=== PATIENT | female | born 2005 | race Caucasian/White ===

== ENCOUNTER 2024-03-06 06:32 | Emergency (ER) | payer OTHER, BC, SELFPAY ==
[2024-03-06 06:48] VITALS: BP 124/78; PULSE 70; RESP 19; TEMP 36.4; O2SAT 99; BMI 30.9
--- NOTE | 2024-03-06 07:07 | ED_ITS ---
HPI - Abdominal Pain 2 General: Chief Complaint: Abdominal Pain Stated Complaint: abd pain Time Seen by Provider: 03/06/24 06:39 History of Present Illness: 19-year-old female presents emergency ro om with complaint of abdominal pain that began this morning. Complains of pain on the right side radiating to the groin. She vomited multiple times initially she felt like she could not urinate and now is able to urinate. 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 She was able to urinate and did have some relief of this. She has no history of renal stones she denies any hematuria she does not believe she is . No previous abdominal surgeries. Associated Symptoms: Denies chills, dysuria and fever(s) Related Data Date of Last Menstrual Period: 02/25/24 Home Medications Medication Instructions Recorded Confirmed medroxyprogesterone 150 mg/mL 1 mg IM .[id number] 03/06/24 03/06/24 intramuscular suspension Previous Rx's Medication Instructions Recorded ciprofloxacin HCl 500 mg tablet 500 mg PO BID #14 tabs 03/06/24 (Cipro) Allergies Allergy/AdvReac Type Severity Reaction Status Date / Time No Known Allergies Allergy Verified 03/06/24 06:47 Review of Systems 2 Const: Denies: fever(s) or chills Card: Denies: chest pain Resp: Denies: dyspnea GI: Denies: abdominal pain : Denies: dysuria, urinary frequency or urinary urgency Musc: Denies: neck pain or back pain Skin/Breast: Denies: rash [facility] ED 2 Female Reproductive History: Date of last menstrual period: 02/25/24 Physical Exam 2 Const: COMMON NORMALS: no acute distress GENERAL APPEARANCE: cooperative and comfortable ORIENTATION/CONSCIOUSNESS: Yes awake, Yes oriented to person, Yes oriented to place and Yes oriented to time HENMT: COMMON NORMALS: normocephalic, atraumatic and hearing grossly normal bilaterally HEAD & SCALP: normocephalic and atraumatic Resp: COMMON NORMALS: normal respiratory effort, No retractions, No use of accessory muscles and clear to auscultation bilaterally AUSCULTATION: clear to auscultation bilaterally Cardio: COMMON NORMALS: regular rate, regular rhythm and No murmurs present (Cardio) RATE: regular rate RHYTHM: regular rhythm GI: COMMON NORMALS: No hepatosplenomegaly present AUSCULTATION: Yes normoactive bowel sounds PALPATION: Yes Tenderness to palpation present (GI) Details: RUQ, No Guarding due to palpation present (GI) and Yes No hepatosplenomegaly present : BLADDER/KIDNEY EXAM: Yes CVA tenderness Back/Pelvis: GENERAL BACK: Yes CVA tenderness CVA tenderness: bilateral (Right greater than left) Extremity: COMMON NORMALS: normal to inspection, capillary refill normal, no clubbing, cyanosis or edema, no calf tenderness and no pedal edema Neuro: SENSORIUM/ORIENTATION: Yes oriented to person, Yes oriented to place and Yes oriented to time Skin: COMMON NORMALS: no rashes or lesions noted GENERAL SKIN EXAM: no rashes or lesions noted Course 2 Vital Signs: Vital signs: Vital Signs Temperature 97.6 F 03/06/24 06:48 Pulse Rate 70 03/06/24 09:09 Respiratory Rate 18 03/06/24 09:09 Blood Pressure 102/58 03/06/24 09:09 Pulse Oximetry 98 03/06/24 09:09 Oxygen Delivery Me thod Room Air 03/06/24 06:48 MDM - Abdominal Pain Medical Decision Making Mild pyelonephritis. Patient does have significant on hematuria some of this may be from vaginal contaminant she just recently finished her period. There is no evidence of nephrolithiasis or hydronephrosis or hydroureter on the CT nothing to suggest reasonable has a stone. She does have signs of infection no leukocytosis we will start her on tamsulosin and Cipro was given dose ceftriaxone here discharge home if she has worsening or change symptoms return Medical Records I reviewed the patient's medical records. Lab Data I reviewed the patient's lab results. 03/06/24 07:30 03/06/24 07:30 Labs/Radiology: Radiology Impressions Abdomen/Pelvis CT 03/06/24 07:13 IMPRESSION: 1. Mild fatty infiltration of the liver. Laboratory Results WBC 5.49 10^3/uL (3.29-11.43) 03/06/24 07:30 RBC 4.50 10^6/uL (3.85-5.65) 03/06/24 07:30 Hgb 14.70 g/dL (11.27-16.99) 03/06/24 07:30 Hct 43.9 % (36-47) 03/06/24 07:30 MCV 97.6 fl (85-98) 03/06/24 07:30 MCH 32.7 pg (27-33) 03/06/24 07:30 MCHC 33.5 g/dL (30-55) 03/06/24 07:30 RDW 11.8 % (12.1-15.1) L 03/06/24 07:30 Plt Count 211 10^3/cmm (157-399) 03/06/24 07:30 MPV 10.5 fL (7.4-10.4) H 03/06/24 07:30 Neut % (Auto) 68.8 % 03/06/24 07:30 Lymph % (Auto) 19.1 % 03/06/24 07:30 [place] % (Auto) 8.7 % 03/06/24 07:30 Eos % (Auto) 2.7 % 03/06/24 07:30 Baso % (Auto) 0.5 % 03/06/24 07:30 Neut # (Auto) 3.77 10^3/uL (1.8-7.7) 03/06/24 07:30 Lymph # (Auto) 1.1 10^3/uL (0.8-4.8) 03/06/24 07:30 [place] # (Auto) 0.5 10^3/uL (0.2-0.9) 03/06/24 07:30 Eos # (Auto) 0.2 10^3/uL (0.0-0.8) 03/06/24 07:30 Baso # (Auto) 0.0 10^3/uL (0.0-0.1) 03/06/24 07:30 Nucleated RBC % (auto) 0 % 03/06/24 07:30 Nucleated RBCs # 0.0 /100WBC 03/06/24 07:30 Sodium 136 mmol/L (136-145) 03/06/24 07:30 Potassium 3.9 mmol/L (3.5-5.1) 03/06/24 07:30 Chloride 101 mmol/L (98-107) 03/06/24 07:30 Carbon Dioxide 25 mmol/L (22-29) 03/06/24 07:30 Anion Gap 13.9 (5-19) 03/06/24 07:30 BUN 11 mg/dL (6-20) 03/06/24 07:30 Creatinine 1.0 mg/dL (0.5-0.9) H 03/06/24 07:30 GFR Calculation 70.0 mL/min (90-130) L 03/06/24 07:30 Glucose 104 mg/dL (65-115) 03/06/24 07:30 Calculated Osmolality 282 mOsm/kg (285-295) L 03/06/24 07:30 Calcium 9.2 mg/dL (8.5-10.5) 03/06/24 07:30 Total Bilirubin 0.5 mg/dL (0.15-1.2) 03/06/24 07:30 AST 15 U/L (0-32) 03/06/24 07:30 ALT 15 U/L (0-33) 03/06/24 07:30 Alkaline Phosphatase 89 U/L (35-105) 03/06/24 07:30 Total Protein 7.4 g/dL (6.6-8.7) 03/06/24 07:30 Albumin 4.6 g/dL (3.5-5.2) 03/06/24 07:30 Globulin 2.8 g/dL (1.3-4.6) 03/06/24 07:30 Lipase 31 U/L (13-60) 03/06/24 07:30 HCG, Qual Negative (Negative) 03/06/24 07:30 Urine Color Dark yellow (Yellow) A 03/06/24 06:55 Urine Appearance Cloudy (CLEAR) A 03/06/24 06:55 Urine pH 5.5 (5-7) 03/06/24 06:55 Ur Specific [place] 1.026 (1.005-1.030) 03/06/24 06:55 Urine Protein 1+ (Negative) A 03/06/24 06:55 Urine Glucose (UA) Negative (Normal) 03/06/24 06:55 Urine Ketones 1+ (Negative) H 03/06/24 06:55 Urine Blood 3+ (Negative) A 03/06/24 06:55 Urine Nitrate Negative (Negative) 03/06/24 06:55 Urine Bilirubin Negative (Negative) 03/06/24 06:55 Urine Urobilinogen 1.0 mg/dL (Negative) 03/06/24 06:55 Ur Leukocyte Esterase 2+ (Negative) A 03/06/24 06:55 Urine RBC 51-100 /hpf (0-2) H 03/06/24 06:55 Urine WBC 21-50 /hpf (0-5) H 03/06/24 06:55 Ur Squamous Epith Cells 6-10 /hpf (0-5) 03/06/24 06:55 Amorphous Sediment Not Reportable 03/06/24 06:55 Urine Bacteria 1+ /hpf (NONE) H 03/06/24 06:55 Hyaline Casts 6.17 /lpf 03/06/24 06:55 All radiology interpretation(s) finalized by discharge Discharge Plan Discharge Patient Disposition: Home Clinical Impression: Pyelonephritis, Cystitis Condition: Stable Prescriptions: New ciprofloxacin HCl [Cipro] 500 mg tablet 500 mg PO BID Qty: 14 0RF No Action medroxyprogesterone 150 mg/mL suspension 1 mg IM .[id number] Discharge Orders: Discharge ED (Routine); Ordered 03/06/24 Ordered By: Hayes Chambers Referrals: Stephany Montiel APN [Primary Care Provider] - Discharge Diet: Usual diet Discharge Activity: Increase activity as tolerated Patient Instructions: Opioid Safety, Pain Management Activity Restrictions/Additional Instructions: Thank you for choosing [facility] for your healthcare needs today. It is very important that you follow up as instructed or that you return to the Emergency Department should you have concerns or if your condition changes or worsens in any way. You are seen in the emergency room with complaint of abdominal pain and right flank pain. CT did not show any evidence of kidney stones your white count was normal there is no other acute pathology on the CT urine did show signs of infection. You are given a dose of IV antibiotics emergency room recommend starting oral antibiotics beginning tomorrow 1 pill twice a day for 7 days. Coding Level of Care Code ED Business Services Associate for Stacia Newsome
[2024-03-06 07:12] LABS: Bilirubin Urine Negative (Negative); Blood Urine 3+ (Negative); Glucose Urine UA Negative (Normal); Ketones Urine 1+ (Negative); Leukocyte Esterase Urine 2+ (Negative); Nitrate Urine Negative (Negative); Protein Urine 1+ (Negative); Specific Gravity, Urine 1.026 (1.005-1.030); Urine Appearance Cloudy (CLEAR); Urine Color Dark Yellow (Yellow); pH Urine 5.5 (5-7)
--- NOTE | 2024-03-06 07:13 | CTR_ITS ---
PROCEDURE INFORMATION: Exam: CT Abdomen And Pelvis Without Contrast Exam date and time: 03/06/2024 7:31 AM Age: 19 years old Clinical indication: Pain; Other: RT flank; Additional info: Flank pain TECHNIQUE: Imaging protocol: Computed tomography of the abdomen and pelvis without contrast. Radiation optimization: All CT scans at this facility use at least one of these dose optimization techniques: automated exposure control; mA and/or kV adjustment per patient size (includes targeted exams where dose is matched to clinical indication); or iterative reconstruction. COMPARISON: No relevant prior studies available. RADIATION DOSE METRICS: Total DLP (mGy-cm): 718.23 FINDINGS: Lungs: Lung bases are clear as visualized. Liver: There is diffuse fatty infiltration of the liver. The liver is otherwise normal. Gallbladder and biliary ducts: Normal. No calcified stones. No ductal dilation. Pancreas: Normal. No ductal dilation. Spleen: Normal. No splenomegaly. Adrenal glands: Normal. No mass. Kidneys and ureters: Normal. No hydronephrosis. Stomach and bowel: Unremarkable. No obstruction. No mucosal thickening. Appendix: No evidence of appendicitis. Intraperitoneal space: Unremarkable. No free air. No significant fluid collection. Vasculature: Unremarkable. No abdominal aortic aneurysm. Lymph nodes: Unremarkable. No enlarged lymph nodes. Urinary bladder: Unremarkable as visualized. Reproductive: Unremarkable as visualized. Bones/joints: Unremarkable. No acute fracture. Soft tissues: There is a small fat filled periumbilical hernia. CT/CT kidney stone [id number] IMPRESSION: 1. Mild fatty infiltration of the liver.
[2024-03-06 07:17] LABS: Add Urine Microscopic? YES; Bacteria Urine 1+ /hpf; Hyaline Casts Urine 6.17 /lpf; RBC Urine 51-100 /hpf (0-2); WBC Urine 21-50 /hpf (0-5)
[2024-03-06 07:20] LABS: Add Urine Culture? Yes
[2024-03-06 07:35] LABS: Basophils % 0.5 %; Eosinophils # 0.2 10^3/uL (0.0-0.8); Eosinophils % 2.7 %; Hematocrit 43.9 % (36-47); Lymphocytes # 1.1 10^3/uL (0.8-4.8); Lymphocytes % 19.1 %; Mean Corpuscular HGB Conc 33.5 g/dL (30-55); Mean Corpuscular Hemoglobin 32.7 pg (27-33); Mean Corpuscular Volume 97.6 fl (85-98); Mean Platelet Volume 10.5 fL (7.4-10.4); Monocytes # 0.5 10^3/uL (0.2-0.9); Monocytes % 8.7 %; Neutrophils # 3.77 10^3/uL (1.8-7.7); Neutrophils % 68.8 %; Nucleated Red Blood Cells % 0 %; Platelet Count 211 10^3/cmm (157-399); Red Cell Distribution Width 11.8 % (12.1-15.1); White Blood Count 5.49 10^3/uL (3.29-11.43)
[2024-03-06 07:45] LABS: HCG, Serum Qual Negative (Negative)
[2024-03-06 07:54] LABS: Alanine Aminotransferase 15 U/L (0-33); Albumin Level 4.6 g/dL (3.5-5.2); Alkaline Phosphatase 89 U/L (35-105); Anion Gap 13.9 (5-19); Aspartate Amino Transferase 15 U/L (0-32); Blood Urea Nitrogen 11 mg/dL (6-20); Calcium 9.2 mg/dL (8.5-10.5); Carbon Dioxide 25 mmol/L (22-29); Chloride 101 mmol/L (98-107); Creatinine Clr Calc Pharmacy 91.9886; Globulin 2.8 g/dL (1.3-4.6); Glucose 104 mg/dL (65-115); Lipase 31 U/L (13-60); Osmolality Calculated 282 mOsm/kg (285-295); Potassium 3.9 mmol/L (3.5-5.1); Sodium 136 mmol/L (136-145); Total Bilirubin 0.5 mg/dL (0.15-1.2); Total Protein 7.4 g/dL (6.6-8.7)
[2024-03-06] MEDS: cefTRIAXone 1,000 mg SDV 1000 MG IVP (08:56)
[2024-03-06 09:09] VITALS: BP 102/58; PULSE 70; RESP 18; O2SAT 98
== END 2024-03-06 09:12 | disposition home or self-care (01) ==
PROVIDERS: Emergency Provider Family Medicine; PCP Nurse Practitioner Family
DX: N12 Tubulo-interstitial nephritis, not specified as acute or chronic (principal); N30.90 Cystitis, unspecified without hematuria
CPT/HCPCS: 74176; 80053; 81001; 83690; 84703; 85025; 87086; 96374; 99285; J0696